=== PATIENT | male | born 1950 | race Caucasian/White ===

== ENCOUNTER 2023-08-17 09:56 | Emergency (ER) | payer OTHER, SELFPAY ==
[2023-08-17 10:03] VITALS: BMI 25.0
[2023-08-17 10:16] LABS: % Basophils 0.2 % (0-2); % Eosinophils 1.1 % (0-6); % Immature Granulocytes 0.2 % (0-0.5); % Lymphocytes 16.1 % (20.5-51.1); % Monocytes 7.8 % (1.7-9.3); % Neutrophils 74.6 % (42.2-75.2); Absolute Eosinophils 0.1 10^3/uL (0-0.7); Absolute Lymphocytes 1.5 10^3/uL (1.2-3.4); Absolute Monocytes 0.7 10^3/uL (0.1-0.6); Absolute Neutrophils 6.9 10^3/uL (1.4-6.5); Hematocrit 37.8 % (39.0-52.0); Mean Corp Hgb Conc. 34.4 g/dL (33.0-37.0); Mean Corpuscular Hgb 29.7 pg (27.0-31.0); Mean Corpuscular Volume 86.5 fL (80.0-94.0); Mean Platelet Volume 10.1 fL (7.4-10.4); Nucleated Red Blood Cells % 0 % (-); Platelet Count 231 10^3/uL (130-400); Red Blood Cell Count 4.37 10^6/uL (4.70-6.10); Red Cell Dist. Width 12.8 % (11.5-14.5); White Blood Cell Count 9.2 10^3/uL (4.8-10.8)
[2023-08-17 10:27] LABS: ALT (SGPT) 55 U/L (0-50); AST (SGOT) 38 U/L (17-59); Albumin 4.6 g/dl (3.5-5.0); Alkaline Phosphatase 133 U/L (38-126); Blood Urea Nitrogen 28 mg/dl (9-20); Calcium 10.3 mg/dl (8.4-10.2); Carbon Dioxide 28 mmol/L (22-30); Chloride 101 mmol/L (98-107); Estimated Creatinine Clearance 72 ml/min; Glucose 134 mg/dl (70-99); Potassium 4.5 mmol/L (3.5-5.1); Sodium 138 mmol/L (135-145); Total Bilirubin 0.7 mg/dl (0.2-1.3); Total Protein 7.4 g/dl (6.3-8.2); eGFR > 60.00
[2023-08-17] MEDS: DILAUDID 1 MG IV ×4 (10:31→14:29)
[2023-08-17] MEDS: ZOFRAN 4 MG IV (10:31)
[2023-08-17] MEDS: NSS 1000 IV (10:31)
--- NOTE | 2023-08-17 10:36 | ED.GENMED ---
History of Present Illness
General
Chief Complaint: Vomiting Blood
Source: patient and spouse
Exam Limitations: none
Time Seen by Provider: 08/17/23 10:13
Nursing documentation reviewed up to this point in time: agreed with
Travel History
Have you had any contact with someone who has COVID-19?: No
Do you have any symptoms of coronavirus? Fever > 100 degrees, chills, cough, shortness of breath, sore throat, loss of taste or smell, muscle aches, or headache?: No
History of Present Illness
History of Present Illness:
72-year-old male presents emergency department due to epigastric pain and vomiting blood. He has a history of esophageal cancer, and is following with Hema Humphreys and Steven.
Past History
Past History
ED Past Medical History: GERD
ED Past Surgical History: Orthopedic
Social History
Tobacco: Former smoker
Alcohol: None
Personal:
Living: with family
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
Review of Systems
Review of Systems
Allergies reviewed?: Yes
All Other Systems: Not applicable
Constitutional: Reports no symptoms
EENT: Reports no symptoms
Respiratory: Reports no symptoms
Cardiac: Reports no symptoms
ABD/GI: Reports abdominal pain and vomiting
: Reports no symptoms
Musculoskeletal: Reports no symptoms
Skin: Reports no symptoms
Neurological: Reports no symptoms
Endocrine: Reports no symptoms
Hematologic/Lymphatic: Reports no symptoms
Psychiatric: Reports no symptoms
Phy Exam
Physical Exam
Physical Exam:
Physical Exam
General: appears uncomfortable, afebrile
Neck: supple. no meningeal signs. normal posterior pharynx
Heart: s1/s2 regular rate and rhythm, no murmur. equal radial
pulses.
HEENT: Pupils equal round reactive to light, EOMI
Lungs: no acute respiratory distress. clear bilaterally
Abdomen: normal bowel sounds. not tender. no CVAT
Neuro: alert and oriented. no focal neurological deficits cranial nerves II through XII intact
Skin: no rash
Psychiatric: well kept. interactive and cooperative
Extremities: no edema. no calf tenderness. negative homans. good distal pulses
Course
Orders/Labs/Results
Orders:
Orders
08/17/23 10:01
EKG [Electrocardiogram (*1)] Urgent
Reason for Study: Bradycardia / Tachycardia
EKG- Treatment ONCE
08/17/23 10:03
CMP [Comprehensive Metabolic Panel] Urgent
Complete Blood Count/With Diff Urgent
08/17/23 10:20
HYDROmorphone [Dilaudid] 1 mg IV NOW STA
Ondansetron Injectable [Zofran] 4 mg IV NOW STA
08/17/23 10:23
0.9% Sodium Chloride 1000 ml [Nss] 1,000 ml IV BOLUS
08/17/23 12:22
HYDROmorphone [Dilaudid] 1 mg IV NOW STA
08/17/23 12:23
HYDROmorphone [Dilaudid] 1 mg .ROUTE .STK-MED ONE
08/17/23 13:02
HYDROmorphone [Dilaudid] 1 mg .ROUTE .STK-MED ONE
Pantoprazole [Protonix IV] 80 mg .ROUTE .STK-MED ONE
08/17/23 13:04
HYDROmorphone [Dilaudid] 1 mg IV NOW STA
08/17/23 13:05
Pantoprazole [Protonix IV] 80 mg IV NOW STA
Abnormal Lab Results
08/17/23
10:03
RBC 4.37 L 10^6/uL
(4.70-6.10)
Hct 37.8 L %
(39.0-52.0)
Absolute Neuts (auto) 6.9 H 10^3/uL
(1.4-6.5)
Absolute Monos (auto) 0.7 H 10^3/uL
(0.1-0.6)
Lymphocytes % 16.1 L %
(20.5-51.1)
BUN 28 H mg/dl
(9-20)
Glucose 134 H mg/dl
(70-99)
Calcium 10.3 H mg/dl
(8.4-10.2)
ALT 55 H U/L
(0-50)
Alkaline Phosphatase 133 H U/L
(38-126)
08/17/23 10:03
08/17/23 10:03
Vital Signs
Initial and Last Documented VS:
Initial Vital Signs
Temp Pulse Resp Pulse Ox
98.3 F 111 14 98
08/17/23 09:58 08/17/23 09:58 08/17/23 09:58 08/17/23 09:58
Last Documented Vital Signs
Temp Pulse Resp BP Pulse Ox
98.3 F 89 17 136/69 99
08/17/23 09:58 08/17/23 12:45 08/17/23 12:45 08/17/23 12:00 08/17/23 12:45
MDM/Problems Addressed
Differential Diagnosis Includes:
GI bleed, bleeding esophageal tumor
MDM/Problems Addressed:
72-year-old male with GI bleed, due to bleeding esophageal tumor. Discussed with oncologist at [facility], hospitalist accepts in transfer.
Chronic conditions affecting care: Cancer (Esophageal cancer)
Acute Exacerbation and/or Progression of Chronic Illness: Cancer (Esophageal cancer)
*Pulse Oximetry
Patient hypoxic: no
*EKG
Interpreted by ED Provider?: Yes
EKG Intrepretation Date: 08/17/23
EKG Intrepretation Time: 10:03
Interpretation: abnormal
Comparison EKG: no changes
Heart Rate: 106
Rate: tachycardiac
Rhythm: sinus tachycardia
[place]: normal axis
Interval: normal interval
QRS Pattern: right bundle branch block
Ischemia: no ischemia
*German Professor Interpretation
Rate: normal
Interpretation: normal
Heart Rate: 88
Rhythm: sinus
*Critical Care Note
Total Time (30-74mins, 75-104mins- exclusive of procedures): 30
comment:
Critical care statement: A total of 30 minutes of critical care time was provided for this patient. This includes management of unstable vital signs, evaluation of the patient at bedside, reviewing the patient's pertinent medical records, discussion
with consultants, review of old EKGs and review of pertinent medical records. This time with separate from time utilized to perform the aforementioned documented procedures
Data Reviewed
Review of Other/Old Records Reveals: Radiology Studies (PET scan distal esophageal tumor, mid thoracic esophageal tumor, adenocarcinoma)
Patient Management
Discussion with other providers: Cage Clerk (Gastroenterology, Dr. Torres requested to see patient)
Escalation/DeEscalation of care consider admission/obs:
Admit indicated
ED Attending Note
-
Portions of this chart may have been created with voice recognition software.� Occasional wrong word or��sound alike� substitutions may have occurred due to the inherent limitations of voice recognition software.
Discharge Plan
Departure
Patient Disposition: Acute Care Hospital
Date of Disposition: 08/17/23
Time of Disposition: 11:14
Patient with high blood pressure during this ER visit?: Yes
Condition: Fair
Discharge Problem:
Acute upper GI bleed, Esophageal cancer
Prescriptions:
No Action
tramadol 50 mg Tablet
50 mg PO Q8H PRN (Reason: pain)
esomeprazole magnesium 40 mg Capsule,Delayed Release(Dr/Ec)
40 mg PO BID
oxycodone 5 mg Tablet
5 mg PO Q6H PRN (Reason: pain)
Referrals:
Jarrod Ruiz, [Family Provider] -
Hospital Transfer
Other hospital: [facility]
I certify that the patient requires transfer: Yes
Discussed case with accepting physician: Shantell
Reason for transfer: higher level of care, specialties available and continuity of care PCP
Interventions
Interventions:
*Risk Screen - Suicide Last Done: 08/17/23 10:06
*General Assessment Last Done: 08/17/23 10:06
*Neglect/Abuse Screening Last Done: 08/17/23 10:06
ED- Fall Risk Assessment Last Done: 08/17/23 10:07
*ED COVID-19 Vaccine History Last Done: 08/17/23 10:05
*Nursing Disposition Last Done: 08/17/23 12:41
JP-Lnwdoj-Kfbtviynmx Assessment Last Done: 08/17/23 10:09
ED- Cardiac Assessment Last Done: 08/17/23 10:09
ED- Pulmonary Assessment Last Done: 08/17/23 10:09
[2023-08-17 11:00] VITALS: BP 136/78
[2023-08-17 12:00] VITALS: BP 136/69
[2023-08-17 13:00] VITALS: BP 148/73
[2023-08-17] MEDS: PROTONIX IV 80 MG IV (13:05)
[2023-08-17 14:00] VITALS: BP 155/79
== END 2023-08-17 14:40 | disposition short-term general hospital (02) ==
LOC: EMR 09:56
PROVIDERS: EMERGENCY PHYSICIAN Emergency Medicine; FAMILY PHYSICIAN Family Medicine
DX: K92.0 Hematemesis (principal); C15.9 Malignant neoplasm of esophagus, unspecified; K21.9 Gastro-esophageal reflux disease without esophagitis; Z87.891 Personal history of nicotine dependence
CPT/HCPCS: 99283; 96374; 96375; 96376; 96361; 80053; 85025; 93005